=== PATIENT | male | born 1985 | race American Indian/Alaskan Native ===

== ENCOUNTER 2018-01-08 22:54 | Emergency (ER) | payer OTHER ==
[2018-01-08 22:54] VITALS: BMI 33.3
[2018-01-08 23:08] VITALS: BP 127/79; PULSE 78; RESP 20; TEMP 99.5; O2SAT 98
--- NOTE | 2018-01-08 23:32 | C.PDOC ---
History Of Present Illness 32 year old male presents to the emergency department via EMS requesting a "checkup. Patient complains of generalized body pain. He states he had fallen 2 days ago, had sutures placed at [facility] [place], and was discharged home. Patient reports he wants a place to rest. No falls today. He denies any alcohol or drug use. Time Seen by Provider: 01/08/18 23:21 Chief Complaint (Nursing): Abnormal Skin Integrity History Per: Patient History/Exam Limitations: no limitations Onset/Duration Of Symptoms: Days Current Symptoms Are (Timing): Still Present Past Medical History Reviewed: Historical Data, Nursing Documentation, Vital Signs Vital Signs: Last Vital Signs Temp 99.5 F 01/08/18 23:05 Pulse 78 01/08/18 23:05 Resp 20 01/08/18 23:05 BP 127/79 01/08/18 23:05 Pulse Ox 98 01/08/18 23:52 - Medical History PMH: Schizophrenia Denies: Diabetes, Hepatitis, HIV, HTN, Seizures, Sexually Transmitted Disease Surgical History: No Surg Hx Family History: States: No Known Family Hx - Social History Hx Alcohol Use: No Hx Substance Use: No - Immunization History Hx Tetanus Toxoid Vaccination: No Hx Influenza Vaccination: No Hx Pneumococcal Vaccination: No Review Of Systems Except As Marked, All Systems Reviewed And Found Negative. Constitutional: Positive for: Other (generalized pain). Negative for: Fever, Chills Musculoskeletal: Negative for: Other (new fall or injury) Skin: Positive for: Lesions (sutured lesions to forehead and nose) Physical Exam - Physical Exam Appears: Non-toxic, No Acute Distress, Unkempt Skin: Warm, Dry, No Rash Head: Normacephalic, Other (3 patsy intact to the left frontal scalp, 2 sutures to the right nare) Eye(s): bilateral: Normal Inspection, EOMI Oral Mucosa: Moist Neck: Normal ROM Chest: Symmetrical Cardiovascular: Rhythm Regular, No Murmur Respiratory: Normal Breath Sounds, No Rales, No Rhonchi, No Wheezing Extremity: Normal ROM, No Tenderness, No Deformity, No Swelling Neurological/Psych: Oriented x3, Normal Speech Gait: Steady ED Course And Treatment O2 Sat by Pulse Oximetry: 98 (RA) Pulse Ox Interpretation: Normal Medical Decision Making Medical Decision Making: Impression: homeless bed seeking male, no signs of new trauma Plan: * Tylenol PO Re-eval: patient is sleeping and asking to stay the night. Patient given list of local shelters. Patient stable for discharge Disposition Counseled Patient/Family Regarding: Diagnosis, Need For Followup - Disposition Referrals: [facility] [Outside] [facility] [Outside] Disposition: HOME/ ROUTINE Disposition Time: 23:51 Condition: STABLE Additional Instructions: Please follow up for suture and staple removal one week after placement Instructions: Wound Care (DC) Forms: [employer] (Polish) - POA Present On Arrival: None - Clinical Impression Clinical Impression: Visit for wound check, Homeless - PA / MACHINE TECHNICIAN / Resident Statement MD/DO has reviewed & agrees with the documentation as recorded. - Scribe Statement The provider has reviewed the documentation as recorded by the Scribe (Carlene Blancas) All medical record entries made by the Scribe were at my direction and personally dictated by me. I have reviewed the chart and agree that the record accurately reflects my personal performance of the history, physical exam, medical decision making, and the department course for this patient. I have also personally directed, reviewed, and agree with the discharge instructions and disposition.
== END 2018-01-09 00:15 | disposition home or self-care (01) ==
LOC: C.ER 22:54
DX: Z48.00 Encounter for change or removal of nonsurgical wound dressing (principal); Z59.0 Homelessness

== ENCOUNTER 2018-03-06 12:17 | Emergency (ER) | payer MEDICAID, OTHER ==
[2018-03-06 12:17] VITALS: BMI 33.3
[2018-03-06 12:34] VITALS: BP 112/73; PULSE 82; RESP 18; TEMP 98.3; O2SAT 99
--- NOTE | 2018-03-06 13:49 | C.PDOC ---
History Of Present Illness 32 y/o male, homeless, brought in by ambulance from the [facility] office for evaluation of nasal bleeding. As per triage note, patient has had epistaxis for 3 days. On arrival patient appears somnolent, and is refusing to cooperate with providing history. Noted some old facial contusions. FYI: previous records review, pt has hx of behavioral ds, schizoaffective ds, was recent admitted to [facility] [place] psych. Time Seen by Provider: 03/06/18 13:29 Chief Complaint (Nursing): ENT Problem History Per: Patient History/Exam Limitations: Intoxication Onset/Duration Of Symptoms: Days Past Medical History Reviewed: Historical Data, Nursing Documentation, Vital Signs Vital Signs: Last Vital Signs Temp 98.3 F 03/06/18 12:28 Pulse 82 03/06/18 12:28 Resp 18 03/06/18 12:28 BP 112/73 03/06/18 12:28 Pulse Ox 99 03/06/18 18:15 - Medical History PMH: Schizophrenia Denies: Diabetes, Hepatitis, HIV, HTN, Seizures, Sexually Transmitted Disease Family History: States: No Known Family Hx - Social History Hx Alcohol Use: No Hx Substance Use: No - Immunization History Hx Tetanus Toxoid Vaccination: No Hx Influenza Vaccination: No Hx Pneumococcal Vaccination: No Review Of Systems Review Of Systems: ROS cannot be obtained secondary to pt's inabilty to answer questions. ENT: Positive for: Nose Discharge Physical Exam - Physical Exam Appears: Non-toxic, No Acute Distress, Unkempt Skin: Warm, Dry Head: Normacephalic Eye(s): bilateral: PERRL (1mm B/L, reactive to light B/L), left: Other (Trace ecchymosis to left periorbital area, no periobital erythema or tenderness, no palpable deformity.) Nose: No Flaring, Epistaxis (Right nostril with inserted paper packing, pt refused to remove it and to examine), No Deformity, Tenderness (Mild tenderness over the nasal bridge with diffuse external edema) Oral Mucosa: Moist, No Drooling, No Trismus Neck: Trachea Midline, No Midline Cervical Tenderness, No Paracervical Tenderness, No Step Off Deformity, Supple Chest: Symmetrical, No Deformity Cardiovascular: Rhythm Regular Respiratory: No Decreased Breath Sounds, No Accessory Muscle Use, No Stridor, No Wheezing Extremity: Normal ROM, No Tenderness, No Pedal Edema, No Deformity, No Swelling Neurological/Psych: Normal Speech, Other (uncooperative) ED Course And Treatment O2 Sat by Pulse Oximetry: 99 (RA) Pulse Ox Interpretation: Normal Progress Note: Pt is resting comfortably in chair, refusing to answer questions and be examined, not cooperative with providing HPI. Limited physical examination. Pt became combative and left ED prior medical evaluation completed. Disposition - Disposition Disposition: ELOPEMENT - ER ONLY Disposition Time: 13:49 Condition: STABLE - Clinical Impression Clinical Impression: Epistaxis - PA / AUTOMOBILE SERVICE WRITER / Resident Statement MD/DO has reviewed & agrees with the documentation as recorded. - Scribe Statement The provider has reviewed the documentation as recorded by the Scribe (Carlene Blancas) All medical record entries made by the Scribe were at my direction and personally dictated by me. I have reviewed the chart and agree that the record accurately reflects my personal performance of the history, physical exam, medical decision making, and the department course for this patient. I have also personally directed, reviewed, and agree with the discharge instructions and disposition.
== END 2018-03-06 13:29 | disposition left against medical advice (07) ==
LOC: C.ER 12:17
DX: R04.0 Epistaxis (principal)